=== PATIENT | female | born 1980 | race Caucasian/White ===

== ENCOUNTER 2016-08-31 08:35 | Day surgery (SDC) | payer OTHER, SELFPAY ==
[2016-08-31] MEDS ORDERED: Dextrose 5%-Lactated Ringers 1,000 ML IV SCH (08:40)
[2016-08-31] MEDS ORDERED: Glycopyrrolate 0.2 MG/ML 2 ML SYRINGE IVPUSH ONE (09:15)
[2016-08-31] MEDS ORDERED: fentaNYL 100 MCG/2 ML SDV ONE (10:02)
[2016-08-31] MEDS ORDERED: Midazolam 1 MG/ML 2 ML SDV ONE (10:03)
[2016-08-31] MEDS ORDERED: Propofol 200 MG/20 ML SDV ONE (10:03)
[2016-08-31 11:44] VITALS: BP 101/62
--- NOTE | 2016-09-04 12:17 | OR ---
DATE OF PROCEDURE: 08/31/2016 PREOPERATIVE DIAGNOSES: Heartburn and epigastric pain. POSTOPERATIVE DIAGNOSES: 1. Small hiatal hernia, but wide open esophagogastric junction with gastroesophageal reflux disease. 2. Mild antral gastritis and duodenitis. OPERATIVE PROCEDURE: Esophagogastroduodenoscopy with: 1. Biopsies of esophagogastric junction for histologic evaluation. 2. Biopsies of antrum for CLOtest. ANESTHESIA: IV sedation. INDICATION FOR PROCEDURE: The patient is a 36-year-old presenting with increasing problems with heartburn and epigastric pain. Presently is on omeprazole, which she found to be somewhat helpful, but still having quite a bit in the way of symptoms. The plan is to proceed with upper GI endoscopy with biopsies as indicated. Potential risks including bleeding and perforation were discussed, and the patient wishes to proceed. DETAILS OF PROCEDURE: The patient was taken to the operating room and placed in a left lateral decubitus position. IV sedation was administered, after which the upper GI endoscope was passed orally through the length of the esophagus into the stomach with retroflexion view of the fundus, and thereafter through the pyloric channel into the proximal duodenum. Findings included normal hypopharynx, larynx, upper esophageal sphincter, and esophageal body. In the EG junction, there was a small hiatal hernia with a fairly strikingly wide open esophagogastric junction with the scope in the distal esophagus with inflation, one could peer directly into a wide open area into the stomach. With this, there was a moderate amount of inflammation of the EG junction. No stricture or gross evidence of neoplasia. The scope was then placed into the stomach and retroflexion revealed the hiatal hernia, with no additional or proximal gastric abnormalities. There was some mild patchy antral gastritis and duodenitis in the duodenal bulb without erosions or ulcerations. At this point, biopsies were obtained from the antrum and sent for CLOtest for H. pylori. Following this, multiple biopsies were obtained from the esophagogastric junction and sent for histologic evaluation. Minimal bleeding from the biopsy sites was seen and the procedure concluded. The patient was taken to the recovery room in satisfactory condition. Plan will be to await the biopsy results and we will see the patient back in clinic for followup discussion of long-term treatment options. Raymond Parra MD /[id number]
== END 2016-08-31 11:40 | disposition home or self-care (01) ==
LOC: JP.SDS 08:35
PROVIDERS: ATTEND Surgery
DX: K31.89 Other diseases of stomach and duodenum (principal); K44.9 Diaphragmatic hernia without obstruction or gangrene; K21.9 Gastro-esophageal reflux disease without esophagitis; Z88.0 Allergy status to penicillin
CPT/HCPCS: 43239; 81025; 87081; 88305; J2250; J2704; J3010; J7042

== ENCOUNTER 2016-09-17 09:02 | Inpatient (IN) | payer OTHER, SELFPAY ==
[~2016-09-17 09:02] MED LIST: Dextrose 5%-Lactated Ringers 1,000 ML IV SCH; Enoxaparin 60 MG/0.6 ML Syringe SUBCUT ONE
[2016-09-17] MEDS ORDERED: Dextrose 5%-Lactated Ringers 1,000 ML IV SCH (09:30)
[2016-09-17] MEDS ORDERED: Enoxaparin 60 MG/0.6 ML Syringe SUBCUT ONE (09:30)
[2016-09-17] MEDS ORDERED: Propofol 200 MG/20 ML SDV ONE (09:42)
[2016-09-17] MEDS ORDERED: Rocuronium 50 MG/5 ML Vial ONE (09:42)
[2016-09-17] MEDS ORDERED: fentaNYL 250 MCG/5 ML SDV ONE ×2 (09:42→13:01)
[2016-09-17] MEDS ORDERED: Dexamethasone 4 MG/ML SDV ONE (09:42)
[2016-09-17] MEDS ORDERED: Succinylcholine/Normal Saline 200 MG/10 ML Syringe ONE (09:42)
[2016-09-17] MEDS ORDERED: Neostigmine Methylsulfate 1 MG/ML 5 ML Syringe ONE (09:42)
[2016-09-17] MEDS ORDERED: Ondansetron 4 MG/2 ML SDV ONE (09:42)
[2016-09-17] MEDS ORDERED: HYDROmorphone/Normal Saline 15 MG/30 ML PCA IV PRN (09:51)
[2016-09-17] MEDS ORDERED: Naloxone 0.4 MG/ML SDV IVPUSH PRN (09:51)
[2016-09-17] MEDS ORDERED: Naloxone 0.4 MG/ML SDV IV PRN (09:53)
[2016-09-17] MEDS: ceFAZolin 2 GM in Sodium Chloride 0.9% 50 ML IV ONE ×2 (12:15→15:04)
[2016-09-17] MEDS ORDERED: hydrOXYzine HCl 50 MG/ML SDV IM PRN (15:02)
[2016-09-17] MEDS ORDERED: hydrOXYzine HCl 25 MG Tab PO PRN (15:03)
[2016-09-17] MEDS ORDERED: Ondansetron 4 MG/2 ML SDV IVPUSH PRN (15:03)
[2016-09-17] MEDS: Metoclopramide 10 MG/2 ML SDV IVPUSH SCH (16:59)
[2016-09-17] MEDS: ceFAZolin 2 GM in Sodium Chloride 0.9% 50 ML IV SCH (20:07)
[2016-09-17] MEDS: Dextrose 5%-Lactated Ringers 1,000 ML IV SCH (22:48)
[2016-09-18] MEDS: Metoclopramide 10 MG/2 ML SDV IVPUSH SCH ×3 (00:18→17:14)
[2016-09-18] MEDS: ceFAZolin 2 GM in Sodium Chloride 0.9% 50 ML IV ONE (00:44)
[2016-09-18] MEDS: ceFAZolin 2 GM in Sodium Chloride 0.9% 50 ML IV SCH ×2 (03:12→12:01)
[2016-09-18] MEDS: Dextrose 5%-Lactated Ringers 1,000 ML IV SCH (05:20)
[2016-09-18] MEDS ORDERED: Acetaminophen 160 MG Tab,Disintegrating PO PRN (07:35)
[2016-09-18] MEDS ORDERED: Acetaminophen 325 MG Tab PO PRN (07:36)
--- NOTE | 2016-09-18 08:54 | PN ---
DATE OF SERVICE: 09/18/2016 SUBJECTIVE: Nya is postop day 1. Her pain has been managed. Activity is good. She did have a temp max of 100.4. Output has been adequate at 1000 mL. She has been on ice chips. OBJECTIVE: GENERAL: Nya Martinez is a 36-year-old female. VITAL SIGNS: TPR 99.9, 81, 18. Blood pressure 131/68. HEENT: Negative. NECK: Supple. HEART: Regular rate and rhythm. LUNGS: Clear. ABDOMEN: Dressings dry and intact. Abdominal binder is on. EXTREMITIES: Without peripheral edema. ASSESSMENT: Repair of paraesophageal hernia with mesh, Audrey fundoplication, excision of mediastinal lipoma for paraesophageal diaphragmatic hernia associated with gastroesophageal reflux disease refractory to medical management and mediastinal lipoma on 09/17/2016. PLAN: 1. 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 2. Dilaudid 2 mg 1 to 2 every 4 hours p.r.n. pain. 3. Tylenol 650 mg p.o. q.4 hours p.r.n. pain, may have chewable. 4. Breakfast, clear liquid diet. Full liquid diet at noon. 5. Dressing off, may shower. 6. Decrease IV to 100 mL at noon. 7. We will evaluate p.r.n. or in a.m. Aga Wolff PA-C /[id number]
[2016-09-18] MEDS: HYDROmorphone 2 MG Tab PO PRN ×3 (10:17→19:39)
[2016-09-18] MEDS ORDERED: Dextrose 5%-Lactated Ringers 1,000 ML IV SCH (12:00)
[2016-09-19] MEDS: HYDROmorphone 2 MG Tab PO PRN ×3 (00:08→12:24)
[2016-09-19] MEDS: Metoclopramide 10 MG/2 ML SDV IVPUSH SCH ×2 (00:11→09:22)
[2016-09-19 12:26] VITALS: BP 132/82
--- NOTE | 2016-09-21 12:32 | DISCH ---
FINAL DIAGNOSES: 1. Paraesophageal diaphragmatic hernia associated with gastroesophageal reflux disease refractory to medical management. 2. Mediastinal lipoma. OPERATIVE PROCEDURE: Repair of paraesophageal diaphragmatic hernia with mesh along with Audrey fundoplication and excision of mediastinal lipoma that was done on 09/17/2016. SUMMARY: This is a 36-year-old female presenting with increasingly significant gastroesophageal reflux symptoms that had been refractory to medical management. After preop evaluation and discussion, she wished to proceed with repair of this. At the time of exploration, she was noted to have a significant paraesophageal component to her hernia, and this was repaired with an absorbable mesh reinforcement along with Audrey fundoplication. She also had a mediastinal lipoma excised during the course of the mediastinal dissection. Postoperatively, she has had no significant problems, she is tolerating a full-liquid diet discharged home on a full-liquid diet for 2 weeks. She will be receiving Dilaudid 2-4 mg q.4 hours p.r.n., #40 and I will have her hold the omeprazole. Otherwise, continue the topical triamcinolone cream p.r.n. Followup with Aga Wolff will be on Wednesday, 09/25.
--- NOTE | 2016-09-25 08:51 | OR ---
DATE OF PROCEDURE: 09/17/2016 PREOPERATIVE DIAGNOSIS: Gastroesophageal reflux disease refractory to medical management. POSTOPERATIVE DIAGNOSES: 1. Paraesophageal diaphragmatic hernia associated with gastroesophageal reflux disease refractory to medical management. 2. Mediastinal lipoma. OPERATIVE PROCEDURE: 1. Repair of paraesophageal diaphragmatic hernia with mesh with Audrey fundoplication (70092). 2. Excision of mediastinal lipoma (39027). ANESTHESIA: General. LEVEL VIAL INSIDE GRINDER: Aga Wolff PA-C. INDICATIONS FOR PROCEDURE: This is a 36-year-old female presenting with gastroesophageal reflux disease that has become refractory to medical management. After preoperative evaluation and discussion, she wished to proceed with a Audrey fundoplication. Potential risk including bleeding, infection, injury to the viscera in the area of possible problems with fundoplication such as dysphagia, gas-bloat syndrome, disorders of gastric emptying rate, as well as possibility of incomplete relief of reflux symptoms were reviewed along with the remote possibility of cardiopulmonary, septic, or hemorrhagic complications leading to and the patient wishes to proceed. DETAILS OF PROCEDURE: The patient was taken to the operating room and placed in a supine position. After general endotracheal anesthesia was induced, she was converted to a lithotomy position. Verdin catheter was placed as was the gastrointestinal catheter, the abdomen was prepped and draped. At 15 cm inferior to the left xiphoid process, transverse incision was made. The peritoneal cavity entered under direct vision without trocar inflated to 15 mmHg pressure with CO2. Laparoscope was reinserted. No underlying trocar insertion site injuries were seen. Following this, 4 additional trocars were placed across the upper mid abdomen and the general exploration was undertaken. Upon elevation of the liver. The patient noted to have a fairly large diaphragmatic hernia with major paraesophageal component with prolapse of the perigastric fat and gastric fundus as well as some omentum in a plane anterior to the course of the esophagus. The hernia was then reduced and the peritoneum along the edges incised and reflected downwards. At this point, the esophagus dissected away from the right and left crura on each side and the retroesophageal dissection resulted in a window posterior to the esophagus which was encircled with a Queen drain and with the harmonic scalpel additional attachments to the esophagus to the mediastinum were dissected free potentially resulting in very satisfactory intra-abdominal esophageal length of around 5 cm without retraction at the time of measurement. During the course of the dissection, the mediastinal lipoma was encountered and this was dissected free and sent as a separate specimen. The crural repair was then accomplished with 0 Ethibond sutures reinforced with PTFE pledgets. The size and effect were such that it was felt that an augmentation of the repair with a Phasix mesh would be warranted. This mesh was then cut such that it made across the crural repair posteriorly, then up along the edges of the diaphragmatic crura on each side adjacent to the esophagus. Once this mesh was positioned, it was then affixed with some titanium tacking screws. At this point, the short gastric vessels were taken down along the mid greater curvature of the stomach with Harmonic scalpel. This dissection then continued approximately to divide the short gastrics including the highest and posterior short gastric vessels and at that point, the fundus appeared to be very satisfactory mobile and guidewire was passed orally per Anesthesia and after which, the fundus was retrieved through the retroesophageal window over the guidewire, then a 54-Romansh Savary dilator was placed, a 2 cm three-stitch fundoplication was accomplished with 0 Ethibond sutures reinforced with PTFE pledgets. The left side of the fundoplication was then also reinforced to the overlying diaphragm with an additional stitch and pledget of the same material used for the fundoplication stitches. At that point, the guidewire and dilator were removed, and the fundoplication was inspected and found to be satisfactorily floppy. There were no further problems noted. Trocars removed. The peritoneal cavity deflated. The fascia at the 12 mm site was closed with 0 Vicryl stitch and the skin was closed with 4-0 Vicryl skin stitch. Dressing was applied. The patient was taken to the recovery room in satisfactory condition. Physician mechanic assistant, Aga Wolff, played an essential role in assisting in this case, helping to position the patient, retract structures as needed, as well as suturing and cutting sutures as indicated, her presence improved the patient safety and decreased operative time. Raymond Parra MD /[id number]
== END 2016-09-19 13:15 | disposition home or self-care (01) | DRG 328 ==
LOC: JP.MS 09:02 → JP.SDS 09:02 → EDSTATUS 11:45 → JP.MS 14:30
PROVIDERS: ADMIT Surgery; ATTEND Surgery
PROC: 0BUS4JZ (ICD-10-PCS; principal; 2016-09-17)
PROC: 0DV44ZZ Restriction of Esophagogastric Junction, Percutaneous Endoscopic Approach (ICD-10-PCS; principal; 2016-09-17)
PROC: 0BUR4JZ (ICD-10-PCS; principal; 2016-09-17)
PROC: 0WBC4ZX Excision of Mediastinum, Percutaneous Endoscopic Approach, Diagnostic (ICD-10-PCS; principal; 2016-09-17)
DX: K21.9 Gastro-esophageal reflux disease without esophagitis (principal); K44.9 Diaphragmatic hernia without obstruction or gangrene; D17.4 Benign lipomatous neoplasm of intrathoracic organs; Z86.718 Personal history of other venous thrombosis and embolism; Z88.0 Allergy status to penicillin; M79.1 Myalgia; E66.9 Obesity, unspecified; Z68.37 Body mass index [BMI] 37.0-37.9, adult
CPT/HCPCS: 81025; 88304; 94762; A9270-GY; C1781; J0690; J1100; J1170; J1650; J2405; J2704; J2765; J3010; J7042; J7050

== ENCOUNTER 2017-09-28 06:07 | Inpatient (IN) | payer MEDICAID ==
[2017-09-28] MEDS ORDERED: Lactated Ringers 1,000 ML IV SCH (06:15)
[2017-09-28] MEDS ORDERED: Oxytocin 10 Units/1 ML SDV ONE ×2 (06:51→06:56)
[2017-09-28] MEDS ORDERED: Phenylephrine 1% 10 MG/ML SDV ONE (06:55)
[2017-09-28] MEDS ORDERED: ePHEDrine 50 MG/ML SDV ONE (06:56)
[2017-09-28] MEDS ORDERED: Lactated Ringers 1,000 ML ONE (06:57)
[2017-09-28] MEDS ORDERED: ceFAZolin 2 GM in Premix Bag 1 BAG IV ONE (07:30)
[2017-09-28] MEDS: Sodium Chloride 0.9% 1,000 ML IV SCH ×2 (07:36→11:51)
[2017-09-28] MEDS ORDERED: Bisacodyl 10 MG Supp RECTAL PRN (09:17)
[2017-09-28] MEDS ORDERED: Witch Hazel Medicated Pads 100/Jar TOP PRN (09:17)
[2017-09-28] MEDS ORDERED: Acetaminophen 325 MG Tab PO PRN (09:17)
[2017-09-28] MEDS ORDERED: Docusate Sodium 100 MG Cap PO PRN (09:17)
[2017-09-28] MEDS ORDERED: Ondansetron 4 MG/2 ML SDV IV PRN (09:17)
[2017-09-28] MEDS ORDERED: Zolpidem 5 MG Tab PO PRN (09:17)
[2017-09-28] MEDS ORDERED: ePHEDrine 50 MG/ML SDV IVPUSH PRN (09:17)
[2017-09-28] MEDS ORDERED: Naloxone 0.4 MG/ML SDV IVPUSH PRN (09:17)
[2017-09-28] MEDS ORDERED: Lanolin 100% Cream 40 GM Tube TOP PRN (09:17)
[2017-09-28] MEDS ORDERED: Benzocaine 20% Top Spray 56 GM Bottle TOP PRN (09:17)
[2017-09-28] MEDS ORDERED: diphenhydrAMINE 50 MG/ML SDV IVPUSH PRN (09:17)
[2017-09-28] MEDS ORDERED: diphenhydrAMINE 50 MG/ML SDV IV PRN (09:17)
[2017-09-28] MEDS: Ketorolac 30 MG/ML SDV IVPUSH SCH ×2 (09:36→17:28)
[2017-09-28] MEDS: Acetaminophen/HYDROcodone 325-5 MG Tab PO PRN ×3 (15:16→20:21)
[2017-09-29] MEDS: Acetaminophen/HYDROcodone 325-5 MG Tab PO PRN ×6 (00:27→20:25)
[2017-09-29] MEDS: Ketorolac 30 MG/ML SDV IVPUSH SCH ×3 (01:18→16:32)
--- NOTE | 2017-09-29 08:34 | OR ---
DATE OF PROCEDURE: 09/28/2017 PROCEDURE: section. CHANGE NUMBER OPERATOR: Britta Eduardo CNM. COMPLICATIONS: None. ANESTHESIA: Spinal. INDICATIONS: Requirement for repeat . RISKS: Risks, benefits, alternatives, limitations including, but not limited to infection, bleeding, injury to bowel, bladder, baby, and other risks were explained to the patient and wished to proceed. PROCEDURE IN DETAIL: The patient was placed in supine position. This would be performed in a classic Pfannenstiel type form using the previous incision. This previous incision was opened with a #15 blade, and electrocautery was used to carry it down to the external oblique aponeurosis, which was also opened with electrocautery. The rectus muscles in midline were opened sharply with Metzenbaum scissors under direct visualization. No evidence of enterotomy or injury was noted during this aspect. A muscle spreading technique was then performed. The bladder was identified and deflected inferiorly. A mosquito was then used to open the uterus bluntly. This was then opened further with electrocautery laterally. The baby was delivered without difficulty. The cord was cut and clamped. The placenta was then delivered in totality. Uterus was inspected for any retained products, which none were noted. The uterus was then closed with 3 layers of #0 blunt Vicryl in a running locked fashion. The uterus was then placed back in the abdomen, after Pitocin was given. This was inspected for clots. None were noted. The rectus muscles were reapproximated with Vicryl suture. The fascia was closed with blunt Vicryl suture, running x2. All layers were then thoroughly irrigated. Subcutaneous tissues were thoroughly irrigated. No blood noted in the Verdin. The skin was closed with #4-0 Vicryl, and Dermabond was applied. The patient tolerated the procedure well. Mykel Anderson MD /[id number]
[2017-09-29] MEDS: Ibuprofen 600 MG Tab PO PRN ×3 (09:36→21:35)
--- NOTE | 2017-09-29 10:13 | PN ---
DATE OF SERVICE: 09/29/2017 SUBJECTIVE: The patient is doing very well today. Pain is well controlled. No nausea, vomiting, shortness of breath, or chest pain. OBJECTIVE: VITAL SIGNS: Stable. CARDIOVASCULAR: Regular rhythm and rate. LUNGS: Clear to auscultation bilaterally. ABDOMEN: Incision healing well. ASSESSMENT: Status post section. PLAN: Continue advancing diet. Verdin has already been removed. We will saline lock. Continue to advance diet and activity in the next 24 hours and anticipated discharge probably in the next 24 hours. Mykel Anderson MD /[id number]
[2017-09-29] MEDS ORDERED: Enoxaparin 40 MG/0.4 ML Syringe SUBCUT SCH (13:00)
[2017-09-30] MEDS: Acetaminophen/HYDROcodone 325-5 MG Tab PO PRN (01:20)
[2017-09-30] MEDS: Ketorolac 30 MG/ML SDV IVPUSH SCH (02:39)
[2017-09-30] MEDS: Ibuprofen 600 MG Tab PO PRN (03:46)
[2017-09-30 11:28] VITALS: BP 100/60
--- NOTE | 2017-09-30 11:47 | DISCH ---
DISCHARGE DIAGNOSIS: Status post section. SUMMARY OF HOSPITAL COURSE: This is a pleasant 37-year-old female who underwent an uneventful section. Prior to discharge, her pain was well controlled. She had no nausea, vomiting, shortness of breath, or chest pain. Having bowel movements and pain was controlled on Tylenol. FOLLOWUP: Follow up with Surgery in 7-14 days. ACTIVITY: No lifting greater than 30 pounds x30 days. DISCHARGE MEDICATIONS: Please see MAR.
--- NOTE | 2017-09-30 11:53 | PN ---
DATE OF SERVICE: 09/30/2017 SUBJECTIVE: The patient is doing very well. Pain is well controlled. No nausea, vomiting, shortness of breath, or chest pain. OBJECTIVE: VITAL SIGNS: Stable. CARDIOVASCULAR: Regular rhythm and rate. RESPIRATORY: Lungs are clear to auscultation bilaterally. ABDOMEN: Her incision is healing well. ASSESSMENT: Status post . PLAN: The patient will be discharged today. Please see discharge summary for further details. Mykel Anderson MD /[id number]
== END 2017-09-30 10:30 | disposition home or self-care (01) | DRG 766 ==
LOC: JP.SDS 06:07 → JP.MS 08:18
PROVIDERS: ADMIT Surgery; ATTEND Surgery
PROC: 10D00Z1 Extraction of Products of Conception, Low, Open Approach (ICD-10-PCS; principal; 2017-09-28)
DX: O24.429 Gestational diabetes mellitus in childbirth, unspecified control (principal); Z3A.00 Weeks of gestation of pregnancy not specified; Z37.0 Single live birth; O34.211 Maternal care for low transverse scar from previous cesarean delivery; N85.8 Other specified noninflammatory disorders of uterus; Z88.0 Allergy status to penicillin; Z87.891 Personal history of nicotine dependence; Z86.718 Personal history of other venous thrombosis and embolism
CPT/HCPCS: 36415; 59409; 80048; 80305; 85027; 86850; 86900; 86901; A9270-GY; J0690; J1650; J1885; J2370; J2590; J7040; J7120

== ENCOUNTER 2020-07-14 23:50 | Emergency (ER) | payer BC, MEDICAID ==
[2020-07-15 00:08] VITALS: BP 126/75; PULSE 84
--- NOTE | 2020-07-15 00:19 | EDM.PDOC ---
ED HPI GENERAL MEDICAL PROBLEM - General Chief Complaint: Lower Extremity Injury/Pain Stated Complaint: POSSIBLE BLOOD CLOT Time Seen by Provider: 07/15/20 00:01 Source of Information: Reports: Patient History Limitations: Reports: No Limitations - History of Present Illness INITIAL COMMENTS - FREE TEXT/NARRATIVE: Nya is a 40-year-old female presenting to the ED with concerns of possible blood clot in her right lower extremity. Patient states that she woke up several nights ago with an intense cramp behind her right knee. Since then she has had residual pain there and maybe some swelling in the leg. She is concerned about the formation of a deep venous thrombosis. She denies any trauma to the area. The patient does have a history of deep venous thrombosis on the right lower extremity approximately 11 years ago. At that time she had a cast on her lower extremity after having a bone graft and she developed similar pain. She waited 3 days before going in to be evaluated and was found to have the deep venous thrombosis. She was on Coumadin for 6 months and was subsequently taken off of it. She has had no problems since then until 2 nights ago when she again had intense pain behind the right thigh and knee. right lower leg Pain Score (Numeric/FACES): 4 - Related Data Allergies Allergy/AdvReac Type Severity Reaction Status Date / Time Penicillins Allergy Intermediate Hives Verified 07/15/20 00:05 Home Meds: Home Meds NK [No Known Home Meds] 07/15/20 [History] Past Medical History HEENT History: Reports: Impaired Vision Other HEENT History: wears glasses Cardiovascular History: Reports: Blood Clots/VTE/DVT Respiratory History: Reports: Bronchitis, Recurrent Gastrointestinal History: Reports: GERD Genitourinary History: Reports: None GIS ADMINISTRATOR History: Reports: , Other (See Below) Other GIS ADMINISTRATOR History: Gestational Diabetes Musculoskeletal History: Reports: None, Fracture Endocrine/Metabolic History: Reports: Diabetes, Gestational, Obesity/BMI 30+ Hematologic History: Reports: Anticoagulation Therapy Other Hematologic History: DVT 2009 Dermatologic History: Reports: Eczema - Infectious Disease History Infectious Disease History: Reports: Chicken Pox, Novel Coronavirus - Past Surgical History HEENT Surgical History: Reports: Adenoidectomy Respiratory Surgical History: Reports: None GI Surgical History: Reports: EGD, Audrey Fundoplication Female Surgical History: Reports: Section Endocrine Surgical History: Reports: None Musculoskeletal Surgical History: Reports: Other (See Below) Other Musculoskeletal Surgeries/Procedures:: bone graft right ankle Social & Family History - Family History Family Medical History: No Pertinent Family History HEENT: Reports: Glaucoma Cardiac: Reports: Bypass, High Cholesterol, Hypertension, Stent, Other (See Below) Other Cardiac Family History: Valve replacement Respiratory: Reports: Asthma, COPD OBGYN: Reports: Recurrent Spontaneous Musculoskeletal: Reports: Arthritis, Fibromyalgia Endocrine/Metabolic: Reports: Other (See Below) Other Endocrine/Metabolic Family History: Mother has diabetes - unknown type. Oncologic: Reports: Breast, Colon, Lung - Tobacco Use Tobacco Use Status *Q: Former Tobacco User Used Tobacco, but Quit: Yes Month/Year Tobacco Last Used: 2010 - Caffeine Use Caffeine Use: Reports: Coffee, Soda - Recreational Drug Use Recreational Drug Use: No Review of Systems - Review of Systems Review Of Systems: See Below Constitutional: Reports: No Symptoms Respiratory: Reports: No Symptoms Cardiovascular: Reports: No Symptoms Musculoskeletal: Reports: Leg Pain (Right lower extremity pain), Other (Swelling in the right calf) Skin: Reports: No Symptoms Neurological: Reports: No Symptoms Psychiatric: Reports: No Symptoms ED EXAM, GENERAL - Physical Exam Exam: See Below Exam Limited By: No Limitations General Appearance: Alert, WD/WN, No Apparent Distress Peripheral Pulses: 2+: Femoral (R), Popliteal (R), Posterior Tibial (R) Extremities: Normal Inspection, Normal Range of Motion, Tyshawn's Sign (Positive Homans' sign on the right.), Leg Pain (Tenderness with palpation over the posterior lower right thigh, popliteal fossa, and upper right calf.). No: Joint Swelling, Limited Range of Motion, Increased Warmth, Redness Neurological: Alert, Oriented, Normal Cognition, No Motor/Sensory Deficits Psychiatric: Normal Affect, Normal Mood Skin Exam: Warm, Dry, Intact, Normal Color. No: Erythema, Increased Warmth Lymphatic: No Adenopathy Course - Vital Signs Last Recorded V/S: Last Vital Signs Temp 36.4 C 07/15/20 00:06 Pulse 84 07/15/20 00:06 Resp 18 07/15/20 00:06 BP 126/75 07/15/20 00:06 Pulse Ox 100 07/15/20 00:06 - Orders/Labs/Meds Orders: Active Orders 24 hr Category Date Time Status VL Duplex Lwr Ext Veins Ltd Rt [US] Stat Exams 07/15/20 00:20 Ordered Labs: Laboratory Tests 07/15/20 07/15/20 Range/Units 00:30 00:30 WBC 6.6 (4.5-11.0) K/uL RBC 4.43 (3.30-5.50) M/uL Hgb 13.0 (12.0-15.0) g/dL Hct 39.7 (36.0-48.0) % MCV 90 (80-98) fL MCH 29 (27-31) pg MCHC 33 (32-36) % Plt Count 273 (150-400) K/uL Sodium 142 (140-148) mmol/L Potassium 3.6 (3.6-5.2) mmol/L Chloride 105 (100-108) mmol/L Carbon Dioxide 27 (21-32) mmol/L Anion Gap 10.4 (5.0-14.0) mmol/L BUN 18 D (7-18) mg/dL Creatinine 0.8 (0.6-1.0) mg/dL Est Cr Clr Drug Dosing 74.67 mL/min Estimated GFR (MDRD) > 60 (>60) Glucose 101 (74-106) mg/dL Calcium 8.5 (8.5-10.1) mg/dL Magnesium 1.8 (1.8-2.4) mg/dL - Radiology Interpretation Free Text/Narrative:: Venous duplex ultrasound of the right lower extremity is negative for evidence of deep venous thrombosis. - Re-Assessments/Exams Free Text/Narrative Re-Assessment/Exam: 07/15/20 01:16 labs and ultrasound were reviewed and are negative for any significant abnormalities. This is likely an acute muscle strain or spasm. Given the patient's past medical history for deep venous thrombosis, I reassured her of the lack of significant findings today. At this time I believe the patient is suitable for discharge home in satisfactory condition. Indications to return to ED were discussed and all questions were answered prior to discharge. Departure - Departure Time of Disposition: 01:17 Disposition: Home, Self-Care 01 Condition: Good Clinical Impression: Pain of right lower extremity - Discharge Information *PRESCRIPTION DRUG MONITORING PROGRAM REVIEWED*: Not Applicable *COPY OF PRESCRIPTION DRUG MONITORING REPORT IN PATIENT ZOE: Not Applicable Instructions: Muscle Strain, [id number] Referrals: Velia Eduardo CNM [Primary Care Provider] - Forms: ED Department Discharge Care Plan Goals: I would recommend taking Tylenol or ibuprofen for pain control. Fortunately your imaging and labs today are unremarkable for any significant abnormalities. At times dehydration can lead to muscle spasm and leg pain. Sepsis Event Note (ED) - Evaluation Sepsis Screening Result: No Definite Risk - Focused Exam Vital Signs: Vital Signs Temp Pulse Resp BP Pulse Ox 07/15/20 00:06 36.4 C 84 18 126/75 100 - Problem List & Annotations (1) Pain of right lower extremity SNOMED Code(s): 030504042 Code(s): M79.604 - PAIN IN RIGHT LEG Status: Acute Priority: Medium Current Visit: Yes - Problem List Review Problem List Initiated/Reviewed/Updated: Yes - My Orders Last 24 Hours: My Active Orders 07/15/20 00:20 VL Duplex Lwr Ext Veins Ltd Rt [US] Stat - Assessment/Plan Last 24 Hours: My Active Orders 07/15/20 00:20 VL Duplex Lwr Ext Veins Ltd Rt [US] Stat
--- NOTE | 2020-07-15 10:10 | US ---
VL Duplex Lwr Ext Veins Ltd Rt INDICATION: acute right lower extrmity pain and swelling FINDINGS: Ultrasound examination of the lower extremity using Doppler and compressive technique demonstrates that the common femoral, femoral, and popliteal veins are patent, and negative for thrombus. The calf veins were segmentally visualized and are negative where seen. IMPRESSION: Negative for deep venous thrombosis.
== END 2020-07-15 01:25 | disposition home or self-care (01) ==
LOC: JP.ED 23:50
DX: M79.661 Pain in right lower leg (principal); M79.651 Pain in right thigh; E66.9 Obesity, unspecified; Z88.0 Allergy status to penicillin; Z68.35 Body mass index [BMI] 35.0-35.9, adult; Z87.891 Personal history of nicotine dependence
CPT/HCPCS: 36415; 80048; 83735; 85027; 93971-26; 93971-RT; 99282; 99284-25

== ENCOUNTER 2020-11-03 10:40 | Emergency (ER) | payer BC, MEDICAID ==
[2020-11-03 11:01] VITALS: BP 109/63; PULSE 88
--- NOTE | 2020-11-03 11:08 | EDM.PDOC ---
ED HPI GENERAL MEDICAL PROBLEM - General Chief Complaint: Respiratory Problem Stated Complaint: LUNG ISSUES Time Seen by Provider: 11/03/20 10:55 Source of Information: Reports: Patient History Limitations: Reports: No Limitations - History of Present Illness INITIAL COMMENTS - FREE TEXT/NARRATIVE: pt gives a history of coughing alot. She has her normal taste and smell. She sta kang that often this time of year she gets problems with congestion. Onset: Other (last 2 days. ) Duration: Hour(s): Location: Reports: Other (pt has a very irritated throat present. ) Associated Symptoms: Reports: Cough, Other (pt has not had a fever. 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: , Other (See Below) Other PREPRESS SPECIALIST History: Gestational Diabetes Musculoskeletal History: Reports: None, Fracture Endocrine/Metabolic History: Reports: Diabetes, Gestational, Obesity/BMI 30+ Hematologic History: Reports: Anticoagulation Therapy Other Hematologic History: DVT 2009 Dermatologic History: Reports: Eczema - Infectious Disease History Infectious Disease History: Reports: Chicken Pox, Novel Coronavirus - Past Surgical History HEENT Surgical History: Reports: Adenoidectomy Respiratory Surgical History: Reports: None GI Surgical History: Reports: EGD, Audrey Fundoplication Female Surgical History: Reports: Section Endocrine Surgical History: Reports: None Musculoskeletal Surgical History: Reports: Other (See Below) Other Musculoskeletal Surgeries/Procedures:: bone graft right ankle Social & Family History - Family History Family Medical History: No Pertinent Family History HEENT: Reports: Glaucoma Cardiac: Reports: Bypass, High Cholesterol, Hypertension, Stent, Other (See Below) Other Cardiac Family History: Valve replacement Respiratory: Reports: Asthma, COPD OBGYN: Reports: Recurrent Spontaneous Musculoskeletal: Reports: Arthritis, Fibromyalgia Endocrine/Metabolic: Reports: Other (See Below) Other Endocrine/Metabolic Family History: Mother has diabetes - unknown type. Oncologic: Reports: Breast, Colon, Lung - Caffeine Use Caffeine Use: Reports: Coffee, Soda ED ROS GENERAL - Review of Systems Review Of Systems: See Below Constitutional: Reports: Fatigue HEENT: Reports: Throat Pain Respiratory: Reports: Shortness of Breath, Cough Cardiovascular: Reports: No Symptoms Endocrine: Reports: No Symptoms GI/Abdominal: Reports: No Symptoms Musculoskeletal: Reports: No Symptoms Skin: Reports: No Symptoms Neurological: Reports: No Symptoms ED EXAM, GENERAL - Physical Exam Exam: See Below Free Text/Narrative:: pt arrived with a history of a cough for the past 2 days, low grade temp. Exam Limited By: No Limitations General Appearance: Alert, Anxious, Mild Distress Ears: Normal TMs Nose: Normal Inspection Throat/Mouth: Other ( throat is inflamed. ) Head: Atraumatic Neck: Lymphadenopathy (R), Lymphadenopathy (L) Respiratory/Chest: Rhonchi Cardiovascular: Regular Rate, Rhythm GI/Abdominal: Soft, Non-Tender (Female) Exam: Deferred Rectal (Female) Exam: Deferred Course - Vital Signs Last Recorded V/S: Last Vital Signs Temp 36.2 C 11/03/20 10:56 Pulse 88 11/03/20 10:56 Resp 16 11/03/20 10:56 BP 109/63 11/03/20 10:56 Pulse Ox 100 11/03/20 10:56 - Orders/Labs/Meds Orders: Active Orders 24 hr Category Date Time Status CULTURE STREP A CONFIRMATION [RM] Stat Lab 11/03/20 11:00 Results STREP SCRN A RAPID W CULT CONF [RM] Stat Lab 11/03/20 11:00 Results Labs: Laboratory Tests 11/03/20 Range/Units 10:59 WBC 9.2 (4.5-11.0) K/uL RBC 4.66 (3.30-5.50) M/uL Hgb 14.3 (12.0-15.0) g/dL Hct 41.6 (36.0-48.0) % MCV 89 (80-98) fL MCH 31 (27-31) pg MCHC 34 (32-36) % Plt Count 269 (150-400) K/uL Neut % (Auto) 69 H (36-66) % Lymph % (Auto) 20 L (24-44) % Lander % (Auto) 7 H (2-6) % Eos % (Auto) 3 (2-4) % Baso % (Auto) 0 (0-1) % - Re-Assessments/Exams Free Text/Narrative Re-Assessment/Exam: 11/03/20 11:22 pt had a neg strept and a normal wbc will plan to treat as a bronchitis. Departure - Departure Time of Disposition: 11:18 Disposition: DC/Tfer to Hospice-Med Fac 51 Condition: Fair Clinical Impression: Bronchitis - Discharge Information Referrals: PCP,None [Primary Care Provider] - Forms: ED Department Discharge Care Plan Goals: push fluids , cool mist humidfier, zpack Sepsis Event Note (ED) - Focused Exam Vital Signs: Vital Signs Temp Pulse Resp BP Pulse Ox 11/03/20 10:56 36.2 C 88 16 109/63 100 - My Orders Last 24 Hours: My Active Orders 11/03/20 11:00 CULTURE STREP A CONFIRMATION [RM] Stat STREP SCRN A RAPID W CULT CONF [RM] Stat - Assessment/Plan Last 24 Hours: My Active Orders 11/03/20 11:00 CULTURE STREP A CONFIRMATION [RM] Stat STREP SCRN A RAPID W CULT CONF [RM] Stat
== END 2020-11-03 11:34 | disposition hospice, inpatient (51) ==
LOC: JP.ED 10:40
DX: J40 Bronchitis, not specified as acute or chronic (principal); E66.9 Obesity, unspecified; Z68.33 Body mass index [BMI] 33.0-33.9, adult; Z88.0 Allergy status to penicillin
CPT/HCPCS: 36415; 85025; 87081; 87880-QW; 99283

== ENCOUNTER 2021-06-08 21:54 | Emergency (ER) | payer BC, MEDICAID ==
[2021-06-08 23:13] VITALS: BP 112/76; PULSE 72
[2021-06-08] MEDS ORDERED: Ketorolac 30 MG/ML SDV IM ONE (23:14)
--- NOTE | 2021-06-08 23:23 | EDM.PDOC ---
ED HPI GENERAL MEDICAL PROBLEM - General Chief Complaint: Lower Extremity Injury/Pain Stated Complaint: R CALF PAIN Time Seen by Provider: 06/08/21 23:09 Source of Information: Reports: Patient, Family, RN Notes Reviewed History Limitations: Reports: No Limitations - History of Present Illness INITIAL COMMENTS - FREE TEXT/NARRATIVE: 41-year-old female presents emergency department day complaint of right calf pain, she had injured herself a little over a week ago had went to the walk-in clinic felt this is probably a pulled muscle, as she states it was probably getting better and then she was getting off of a chair heard a large pop sudden onset of pain and now she has difficulty ambulating. 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: , Other (See Below) Other LEARNING DISABILITIES TEACHER History: Gestational Diabetes Musculoskeletal History: Reports: Fracture Endocrine/Metabolic History: Reports: Diabetes, Gestational, Obesity/BMI 30+ Hematologic History: Reports: Anticoagulation Therapy Other Hematologic History: DVT 2009 Dermatologic History: Reports: Eczema - Infectious Disease History Infectious Disease History: Reports: Chicken Pox, Measles, Novel Coronavirus - Past Surgical History HEENT Surgical History: Reports: Adenoidectomy GI Surgical History: Reports: EGD, Audrey Fundoplication Female Surgical History: Reports: Section Musculoskeletal Surgical History: Reports: Other (See Below) Other Musculoskeletal Surgeries/Procedures:: bone graft right ankle Social & Family History - Family History Family Medical History: No Pertinent Family History HEENT: Reports: Glaucoma Cardiac: Reports: Bypass, High Cholesterol, Hypertension, Stent, Other (See Below) Other Cardiac Family History: Valve replacement Respiratory: Reports: Asthma, COPD OBGYN: Reports: Recurrent Spontaneous Musculoskeletal: Reports: Arthritis, Fibromyalgia Endocrine/Metabolic: Reports: Other (See Below) Other Endocrine/Metabolic Family History: Mother has diabetes - unknown type. Oncologic: Reports: Breast, Colon, Lung - Tobacco Use Tobacco Use Status *Q: Never Tobacco User - Caffeine Use Caffeine Use: Reports: Coffee, Soda - Recreational Drug Use Recreational Drug Use: No Review of Systems - Review of Systems Review Of Systems: See Below Musculoskeletal: Reports: Muscle Pain ED EXAM, GENERAL - Physical Exam Exam: See Below Free Text/Narrative:: Examination of the lower extremities I cannot get a decent exam on the right calf she is so tender to the touch I do not appreciate any warmth there is no specific point tenderness is generally tender attempted to do Griffin's test but was unsuccessful, will try and get the pain under control to repeat this test Exam Limited By: No Limitations General Appearance: Alert, WD/WN, No Apparent Distress Course - Vital Signs Last Recorded V/S: Last Vital Signs Temp 98.2 F 06/08/21 22:47 Pulse 72 06/08/21 22:47 Resp 18 06/08/21 22:47 BP 112/76 06/08/21 22:47 Pulse Ox 97 06/08/21 22:47 - Orders/Labs/Meds Meds: Medications Discontinued Medications Generic Name Dose Route Start Last Admin Trade Name Kervin PRN Reason Stop Dose Admin Ketorolac Tromethamine 30 mg 06/08/21 23:14 06/08/21 23:31 Ketorolac 30 Mg/Ml Sdv IM 06/08/21 23:15 30 mg ONETIME ONE Administration Departure - Departure Time of Disposition: 00:56 Disposition: Home, Self-Care 01 Condition: Fair Clinical Impression: Pain of right calf - Discharge Information Instructions: Muscle Strain, [id number] Referrals: Velia Eduardo CNM [Primary Care Provider] - Forms: ED Department Discharge Additional Instructions: Use ibuprofen for baseline pain control, use hydrocodone for breakthrough pain, please contact your primary care in the morning for further evaluation and possible referral to physical therapy call or return to the emergency department worsening of symptoms Sepsis Event Note (ED) - Evaluation Sepsis Screening Result: No Definite Risk - Focused Exam Vital Signs: Vital Signs Temp Pulse Resp BP Pulse Ox 06/08/21 22:47 98.2 F 72 18 112/76 97 - Assessment/Plan Plan: Assessment Acuity = acute Site and laterality = calf pain Etiology = probable underlying muscle tear Manifestations = none Location of injury = Home Lab values = x-ray reveals no obvious patella tendon rupture question of new fracture however she does have a history of bone grafting and repair Plan After adequate pain control she was able to move her foot up and down. Plan is to have her contact her primary care set up for physical therapy in the meantime we will do hydrocodone 5/325 1 tab p.o. 3 times daily as needed total #10 in combination for Motrin for pain control, with crutches This note was dictated using [employer] voice recognition software please call with any questions on syntax or grammar.
--- NOTE | 2021-06-09 00:38 | CRLCR ---
For Patients: As a result of the Century Cures Act, medical imaging exams and procedure reports are released immediately into your electronic medical record. You may view this report before your referring provider. If you have questions, please contact your health care provider. INDICATION: Leg pain TECHNIQUE: Tibia-fibula radiograph 3 views right COMPARISON: None FINDINGS: Bone: There is a linear lucency along the medial malleolar cortex, only seen on the frontal view. A small corticated ossicle is seen near the medial malleolus. Joint: There is soft tissue punctate densities in the medial soft tissues surrounding the ankle. No significant joint effusion is seen. Soft tissue: The visualized Achilles tendon is unremarkable on the lateral radiograph with no significant infiltration of the Kager`s fat pad seen. IMPRESSIONS: 1. There is a linear lucency along the medial malleolar cortex, only seen on the frontal view. If there is a history of trauma, correlation with physical exam for focal tenderness in this region is recommended to exclude an acute fracture. 2. There is soft tissue punctate densities in the medial soft tissues surrounding the ankle. Clinical correlation is recommended to exclude foreign bodies or debris. Dictated by Satn Jim MD @ 06/09/2021 12:37:43 AM Dictated by: Stan Jim MD @ 06/09/2021 00:37:48 (Electronically Signed)
== END 2021-06-09 01:03 | disposition home or self-care (01) ==
LOC: JP.ED 21:54
DX: M79.661 Pain in right lower leg (principal); E66.9 Obesity, unspecified; Z88.0 Allergy status to penicillin; Z68.35 Body mass index [BMI] 35.0-35.9, adult
CPT/HCPCS: 73590; 96372; 99283; J1885

== ENCOUNTER 2024-11-08 10:05 | Day surgery (SDC) | payer MEDICAID ==
[~2024-11-08 10:05] MED LIST changes: +Dexamethasone 4 MG/ML SDV ONE; -Dextrose 5%-Lactated Ringers 1,000 ML IV SCH; -Enoxaparin 60 MG/0.6 ML Syringe SUBCUT ONE; +Glycopyrrolate 0.2 MG/ML 5 ML MDV ONE; +Neostigmine Methylsulfate 10 MG/10 ML MDV ONE; +Ondansetron 4 MG/2 ML SDV ONE; +Propofol 200 MG/20 ML SDV ONE; +Rocuronium 50 MG/5 ML Vial ONE; +Succinylcholine 200 MG/10 ML MDV ONE; +fentaNYL 250 MCG/5 ML SDV ONE
[2024-11-08 10:53] LABS: BASOPHILS ABSOLUTE AUTO 0.03 K/uL (0.00-0.10); BASOPHILS PERCENT AUTO 0.6 % (0.1-1.3); EOSINOPHILS ABSOLUTE AUTO 0.18 K/uL (0.00-0.40); EOSINOPHILS PERCENT AUTO 3.5 % (0.0-5.4); HEMATOCRIT 39.2 % (34.3-46.0); HEMOGLOBIN 13.6 g/dL (11.2-15.5); IMMATURE GRAN ABSOLUTE AUTO 0.01 K/uL (0.00-0.23); IMMATURE GRAN PERCENT AUTO 0.2 % (0.0-0.7); LYMPHOCYTES ABSOLUTE AUTO 1.42 K/uL (0.8-3.3); LYMPHOCYTES PERCENT AUTO 27.4 % (11.4-47.7); MEAN CORPUSCULAR HEMOGLOBIN 31.3 pg (31.6-35.5); MEAN CORPUSCULAR HGB CONC 34.7 g/dL (31.6-35.5); MEAN CORPUSCULAR VOLUME 90.1 fL (81.4-99.0); MONOCYTES ABSOLUTE AUTO 0.39 K/uL (0.20-0.90); MONOCYTES PERCENT AUTO 7.5 % (3.3-12.6); NEUTROPHILS ABSOLUTE AUTO 3.15 K/uL (1.0-7.6); NEUTROPHILS PERCENT AUTO 60.8 % (40.0-78.1); PLATELET COUNT,PLT 216 K/uL (130-375); RED BLOOD CELL COUNT 4.35 M/uL (3.77-5.24); WHITE BLOOD CELL COUNT,WBC 5.2 K/uL (3.2-11.0)
[2024-11-08 11:09] LABS: ANION GAP 12.3 mmol/L (5.0-14.0); CREATININE 0.7 mg/dL (0.6-1.0); EST CRCL DRUG DOSING (CG) 81.96 mL/min; POTASSIUM,K 4.1 mmol/L (3.6-5.2)
[2024-11-08] MEDS: Nozin Nasal Sanitizer NASBOTH ONE (11:42)
[2024-11-08] MEDS: Lactated Ringers 1,000 ML IV SCH (11:46)
[2024-11-08] MEDS: ceFAZolin 2 GM in Premix Bag 1 BAG IV ONE (13:50)
[2024-11-08] MEDS: Bupivacaine 0.5% 50 ML MDV ONE (14:42)
[2024-11-08] MEDS ORDERED: Sugammadex Sodium 200 MG/2 ML VIAL IV ONE (15:05)
[2024-11-08] MEDS ORDERED: Ketorolac 30 MG/ML SDV ONE (15:21)
[2024-11-08] MEDS: Acetaminophen/HYDROcodone 325-5 MG Tab PO ONE (16:29)
[2024-11-08 16:35] VITALS: BP 123/81; PULSE 88
== END 2024-11-08 17:00 | disposition home or self-care (01) ==
LOC: JP.SDS 10:05
PROVIDERS: ATTEND Specialist
DX: M94.251 Chondromalacia, right hip (principal); S73.191A Other sprain of right hip, initial encounter; K21.9 Gastro-esophageal reflux disease without esophagitis; E66.812 Obesity, class 2; Z68.35 Body mass index [BMI] 35.0-35.9, adult; Z79.899 Other long term (current) drug therapy; Z88.0 Allergy status to penicillin
CPT/HCPCS: 01202; 29862; 36415; 76000; 80048; 84703; 85025; A9270; J0665; J0690; J1100; J1596; J1885; J2405; J2704; J2710; J3010; J7120; J0330; J3490